=== PATIENT | female | born 1950 | race Caucasian/White ===

== ENCOUNTER → 2016-07-23 | Outpatient (CLI) | payer MEDICARE ==
--- NOTE | 2016-07-23 13:42 | CT ---
EXAMINATION TYPE: CT chest wo con DATE OF EXAM: 07/23/2016 1:08 PM COMPARISON: Prior chest CT 25 June 2015 HISTORY: Patient complains of eye drooping. Patient has history of sarcoidosis. Pancoast tumor, C 34 .1, ptosis, HO2.409 CT DLP: 145.8 mGycm Automated exposure control for dose reduction was used. Helical acquisition through the chest without contrast FINDINGS: Apical pleural thickening is again noted. There is no mediastinal, axillary, or hilar adenopathy. Jose Angel cification within retrocaval pretracheal nodes seen as on previous. Aorta shows normal caliber. Pneum atocele again noted in the left lower lobe at the level of the pleural surface. No pleural or pericar dial effusion. Heart size is normal. Upper abdomen shows stable appearance. Probable scarring along t he major fissure laterally, axial image 21, 22 is stable. IMPRESSION: FINDINGS COMPATIBLE WITH OLD GRANULOMATOUS DISEASE. NONCONTRAST EXAM. NO SIGNIFICANT INTERVAL CHANGE.
== END | disposition home or self-care (01) ==
LOC: RADCTMAIN 12:46
PROVIDERS: ATTEND Family Medicine
DX: D38.1 Neoplasm of uncertain behavior of trachea, bronchus and lung (principal); H02.409 Unspecified ptosis of unspecified eyelid
CPT/HCPCS: 71250

== ENCOUNTER → 2017-01-26 | Outpatient (CLI) | payer MEDICARE ==
[2017-01-26 14:10] LABS: Appearance,Urine Clear (Clear); Bilirubin,Urine Negative (Negative); Glucose,Urine (UA) Negative (Negative); Ketones,Urine Negative (Negative); Leukocyte Esterase,Urine Negative (Negative); Nitrite,Urine Negative (Negative); PH, Urine 6.5 (5.0-8.0); Protein,Urine Trace (Negative); Specific Gravity,Urine 1.011 (1.001-1.035); UA Billing (MACRO vs. MICRO) CHEM; Urobilinogen,Urine <2.0 mg/dL (<2.0)
[2017-01-26 14:12] LABS: Anisocytosis Slight; Basophils % (A) 1 %; CH 30.4; Eosinophils # (A) 0.1 k/uL (0-0.7); Eosinophils % (A) 1 %; HCT 43.1 % (34.0-46.0); HDW 2.65; HGB 13.8 gm/dL (11.4-16.0); Luc # (Auto) 0.07; Luc % (Auto) 1; Lymphocytes # (A) 0.5 k/uL (1.0-4.8); Lymphocytes % (A) 9 %; MCH 29.7 pg (25.0-35.0); MCV 92.9 fL (80.0-100.0); Mean Platelet Volume 8.4; Monocytes # (A) 0.3 k/uL (0-1.0); Monocytes % (A) 5 %; Neutrophils # (A) 4.7 k/uL (1.3-7.7); Neutrophils % (A) 83 %; RBC 4.64 m/uL (3.80-5.40); RDW 16.1 % (11.5-15.5); WBC 5.7 k/uL (3.8-10.6); WBC (Perox) 5.77
[2017-01-26 14:27] LABS: Calcium 9.8 mg/dL (8.4-10.2); Phosphorus 3.7 mg/dL (2.5-4.5); Potassium 4.2 mmol/L (3.5-5.1); Total Bilirubin 0.4 mg/dL (0.2-1.3); Total Protein 7.4 g/dL (6.3-8.2)
[2017-01-26 15:14] LABS: Erythrocyte Sedimentation Rate 8 mm/hr (0-20)
[2017-01-26 21:20] LABS: ANA w/Reflex to Titer POSITIVE (NEGATIVE); RNP AB Interpretation POSITIVE (NEGATIVE)
== END | disposition home or self-care (01) ==
LOC: LABWHC1 12:37
PROVIDERS: ATTEND Internal Medicine Critical Care Medicine
DX: D86.9 Sarcoidosis, unspecified (principal)
CPT/HCPCS: 36415; 80053; 81003; 82164; 82550; 83735; 84100; 85025; 85652; 86038; 86039; 86225; 86235; 86431

== ENCOUNTER → 2017-01-28 | Outpatient (CLI) | payer MEDICARE ==
--- NOTE | 2017-01-28 15:57 | US ---
EXAMINATION TYPE: US thyroid st tissue head/neck DATE OF EXAM: 01/28/2017 COMPARISON: CT January 15, 2017 CLINICAL HISTORY: E04.1 Thyroid nodule. Pt has been on synthroid for 10 years. Pt has loss her voice for 6 weeks, she was admitted and on an antibiotic, she has stage [address] was non contrast GLAND SIZE: Right Lobe: 2.3 x 0.6 x 0.5 cm Overall Parenchyma: homogenous Left Lobe: 3.0 x 0.5 x 0.8 cm Overall Parenchyma: heterogeneous Isthmus Thickness: 0.2 cm NODULES RIGHT: # of nodules measured on right: 0 LEFT: # of nodules measured on left: 1 1. 0.4 X 0.2 x 0.5 cm echogenic solid nodule at the mid pole with well-defined margins; with a soft tissue rim outside the calcification. This nodule is wider than tall and shows no intranodular vasc ularity. Prior size: no prior ISTHMUS: # of nodules measured in the isthmus: 0 Bilateral neck scanned, no evidence of lymphadenopathy. Thyroid gland is overall small in size with small calcified nodule left thyroid lobe. Findings correl ate with recent CT. IMPRESSION: Small size thyroid is confirmed. No suspicious nodules are evident.
== END | disposition home or self-care (01) ==
LOC: RADUSWWP 15:11
PROVIDERS: ATTEND Otolaryngology
DX: E04.1 Nontoxic single thyroid nodule (principal)
CPT/HCPCS: 76536

== ENCOUNTER 2017-03-12 11:02 | Day surgery (SDC) | payer MEDICARE ==
[2017-03-10 09:50] VITALS: BMI 25.7
[~2017-03-12 11:02] MED LIST: CLINDAMYCIN 900 MG in DEXTROSE 5% IN WATER 50 ML IVPB ONE; DEXAMETHASONE SOD PHOSPHATE 10 MG/ML 1 ML VIAL IV ONE; HYDROcodone/APAP 7.5-325MG 1 EACH TAB ONE; HYDROmorphone 0.5 MG/0.5 ML SYRINGE IVP PRN; HYDROmorphone 1 MG/ML 1 ML SYRINGE ONE; LIDOCAINE 1% 20 ML VIAL (10MG/ML) FOR IV START INTRADERMA PRN; MIDAZOLAM 2 MG/2 ML VIAL IV PRN; ONDANSETRON 4 MG/2 ML VIAL IVP ONE; PILOCARPINE 5 MG TAB ONE; SCOPOLAMINE 1.5MG/72HR PATCH TRANSDERM ONE
[2017-03-12] MEDS ORDERED: PROPOFOL 10 MG/ML 20 ML VIAL IV ONE (12:29)
[2017-03-12] MEDS ORDERED: CLINDAMYCIN 150 MG/ML 4 ML VIAL ONE (12:29)
[2017-03-12] MEDS ORDERED: fentaNYL (PF) 50 MCG/ML 2 ML AMP ONE (12:29)
[2017-03-12] MEDS ORDERED: ONDANSETRON 4 MG/2 ML VIAL ONE (12:29)
[2017-03-12] MEDS ORDERED: MIDAZOLAM 2 MG/2 ML VIAL ONE (12:29)
[2017-03-12] MEDS ORDERED: HYDROcodone/APAP 7.5-325MG 1 EACH TAB ONE (16:15)
[2017-03-12] MEDS ORDERED: HYDROmorphone 1 MG/ML 1 ML SYRINGE ONE ×3 (17:39→23:19)
[2017-03-13] MEDS ORDERED: HYDROcodone/APAP 5-325MG 1 EACH TAB PO PRN ×2 (00:12→00:13)
[2017-03-13] MEDS ORDERED: HYDROmorphone 0.5 MG/0.5 ML SYRINGE IVP PRN (00:17)
[2017-03-13] MEDS ORDERED: ONDANSETRON 4 MG TAB PO PRN (00:18)
[2017-03-13] MEDS ORDERED: HYDROcodone/APAP 7.5-325MG 1 EACH TAB ONE ×2 (01:08→07:06)
[2017-03-13] MEDS ORDERED: HYDROcodone/APAP 7.5-325MG 1 EACH TAB PO PRN (02:57)
--- NOTE | 2017-03-13 08:11 | OP ---
OPERATIVE REPORT DATE OF SURGERY: 03/12/2017 PREOPERATIVE DIAGNOSES: 1. Displaced left trimalleolar ankle fracture. 2. Sjogren's disease. 3. Sarcoidosis. 4. Chronic kidney disease. 5. Osteopenia. 6. History of taking prednisone and Plaquenil. POSTOPERATIVE DIAGNOSES: 1. Displaced left trimalleolar ankle fracture. 2. Sjogren's disease. 3. Sarcoidosis. 4. Chronic kidney disease. 5. Osteopenia. 6. History of taking prednisone and Plaquenil. PROCEDURE: 1. Open reduction, internal fixation of closed right trimalleolar ankle fracture (open reduction, internal fixation of medial and lateral malleolus, nonoperative management of posterior malleolus). 2. Manual application of joint stress by physician for radiography, right ankle. 3. Application of short-leg splint by physician. SURGEON: Dr. Brian Lea. MANAGER GENERAL: Gian HOUSTON (Gian Spencer PAC was required as a skilled payroll and benefits assistant for patient positioning, surgical exposure, reduction of fracture, placement of hardware, closure of wound and application of splint). ANESTHESIA: Spinal. FLUIDS: 1000 mL crystalloid. TOURNIQUET TIME: Tourniquet time 60 minutes. INDICATION: The patient is a very pleasant, previously healthy 67-year-old female with a medical history significant for stage 3 kidney disease, Sjogren syndrome and sarcoidosis, who is on chronic steroids and also takes Plaquenil. The patient sustained a fall resulting in a displaced trimalleolar fracture dislocation. She was initially seen by my partner, who then referred her to me. I met with the patient and her daughter to discuss treatment options. I recommended operative fixation. We discussed the potential risks and complications of surgery including, but not limited to risk of anesthesia, risk of superficial infection, risk of deep infection, risk of delayed wound healing, risk of superficial wound necrosis, risk of fracture, nonunion, risk of fracture, malunion, risk of damage to local blood vessels or nerves, risk of postoperative instability, risk of broken hardware, risk of posttraumatic arthritis, risk of need for further surgery, risk of chronic pain, risk of chronic swelling, risk of inability to regain pre-injury level of function, risk of DVT, risk of PE, risk of other medical complication and possible loss of life or limb. The patient, her daughter voiced understanding of all of these are the most common complications, other complications are possible. They also voiced their understanding that she has a much higher risk of having a complication due to her history of chronic steroid use. They provided verbal and written consent to go forward with surgery. DESCRIPTION OF PROCEDURE: The patient was identified in preoperative holding. The correct right leg was marked with my initials. The consent form was reviewed. The patient was then brought back to the operating room. She was positioned on the OR table and a spinal anesthetic was administered. The patient was then positioned on the OR table. All bony prominences were padded. The contralateral leg was secured to the table with foam and tape. A tourniquet was applied to the proximal aspect of the right thigh. A bone foam bump was placed under the right leg, elevating it to facilitate imaging. A bump was placed under the right buttock internally rotating the leg to neutral. The patient's right leg was then prepped and draped in the standard sterile fashion. Prior to starting surgery, time-out was performed identifying the correct patient, operative extremity, and procedure. The patient's leg was then elevated and exsanguinated with an Esmarch bandage and the tourniquet was inflated to 250 mmHg. I began by outlining a longitudinal incision over the distal fibula. Skin incision was made with a 15 blade scalpel. Dissection was carried down carefully through subcutaneous tissue with tenotomy scissors. The periosteum was incised longitudinally in line with the skin incision. The fracture was identified and debrided of consolidating hematoma and early callus. The fracture was pulled out to length and reduced with a [id number] reduction clamp. Clinically, the fracture fragments keyed in and appeared to be anatomically reduced. Fluoroscopy was used to verify reduction of the fibular fracture. The fibula appeared to be out to length and reduced. At this point, I placed a 2.7 mm lag screw across the fracture. A 2.7 mm drill bit was used to create a gliding hole on the anterior cortex of the proximal fragment and a 2.0 drill bit was used to create a threaded hole in the posterior cortex of the distal fragment. A fully threaded 2.7 mm screw was placed generate excellent compression across the fracture. At this point, a 12 hole 1/3 tubular plate was placed over the lateral aspect of the fibula as a neutralization type plate. A 12 hole plate was utilized due to the long extent of her fracture. A 3.5 mm screw was placed just proximal to the fracture, bringing the plate down to bone. I then placed a 2nd 3.5 mm screw in the most proximal hole of the plate, making sure it was centered on the fibula. I then placed a fully threaded 4.0 mm cancellous screws in the 2 distal holes of the plate into the distal fragment. I then proceeded to place an additional 2 3.5 mm screws proximal to the fracture. Fluoroscopy shots were then taken showing the fibula out to length and anatomically reduced. Attention was then turned to the medial malleolus. A longitudinal incision was made over the medial malleolus. Skin incision was made with a 15 blade scalpel. Dissection was carried down carefully through subcutaneous tissue with tenotomy scissors. The saphenous nerve and vein were retracted anteriorly. The fracture fragment was identified and booked open. The periosteum was raised both proximally and distal to the fracture to help facilitate reduction. Clot and early early callus were cleaned out from the fracture site. The joint was visualized and there were no loose bodies or osteochondral defects. A 2.0 mm drill bit was used to create a unicortical perforation just proximal to the fracture. A [id number] reduction clamp was then used to reduce the fragment. One bell was placed in this hole. The other bell was placed at the tip of the medial malleolus. The fracture appeared to be anatomically reduced clinically. Fluoroscopy was brought in to verify reduction of the medial malleolus fracture. Due to the small size of the fracture fragment, I elected to place 2.7 mm screws rather than the typical 3.5 mm construct. A 2.0 mm drill bit was used to create a tract for a fully-threaded 2 7 screws both anteriorly and posterior to the bell. A fully threaded 2.7 mm screws measuring 56 mm were then placed. The reduction clamp was removed and the fracture fragment held. At this point, final fluoroscopy shots were taken including a mortise view, which showed the fibula out to length. The medial clear space reduced and all hardware in appropriate position. Manual external rotation stress test was then performed showing no widening of the medial clear space or incisor. I interpreted this as a stable syndesmosis and deltoid ligament. A true talar dome overlap lateral was then taken. The hardware appeared to be in acceptable position. The talus was centered under the plafond with no evidence of posterior malleolar displacement or posterior subluxation of the talus. Both wounds were then copiously irrigated. The fascia over the fibula was closed with a running 0 Vicryl stitch. The deep subcu was reapproximated using 2-0 Vicryl. The skin was closed using 3-0 nylon horizontal mattress stitches. The deep subcu was closed medially with 2-0 Vicryl. The skin was closed with 3-0 nylon horizontal mattress stitches. The tourniquet was let down. Total tourniquet time of 60 minutes. I verified that all instrument, sponge and sharp counts were correct. A sterile dressing consisting of Betadine-soaked Adaptic, 4 x 4, and Webril was applied. The drapes were then taken down. A very well-padded bulky Rodas splint with the ankle in neutral was placed. The patient was then woken from her anesthetic, transferred from the OR table to a gurney and brought to PACU, having tolerated the procedure well. PLAN: The patient is going to be admitted overnight for pain control and medical management. She is to remain strictly nonweightbearing on her right ankle. She will follow up in the office in 2 weeks. She is to leave her splint on at all times and is to remain nonweightbearing. MMODL / IJN: [id number] /
[2017-03-13] MEDS ORDERED: HYDROcodone/APAP 10-325MG 1 EACH TAB PO PRN (08:24)
[2017-03-13] MEDS: HYDROmorphone 1 MG/ML 1 ML SYRINGE IVP PRN ×2 (08:28→13:05)
[2017-03-13] MEDS: LACTATED RINGERS 1,000 ML IV SCH ×4 (08:40→21:17)
[2017-03-13] MEDS: CLINDAMYCIN 300 MG in DEXTROSE 5% IN WATER 50 ML IVPB SCH ×6 (08:43→17:03)
[2017-03-13] MEDS: LEVOTHYROXINE 100 MCG TAB PO SCH (08:54)
[2017-03-13] MEDS: ENOXAPARIN 40 MG/0.4 ML SYRINGE SQ SCH (08:54)
[2017-03-13] MEDS: PILOCARPINE 5 MG TAB PO SCH ×2 (08:54→20:07)
[2017-03-13] MEDS: HYDROXYCHLOROQUINE SULFATE 200 MG TAB PO SCH (08:55)
[2017-03-13] MEDS: predniSONE 10 MG TAB PO SCH (08:55)
--- NOTE | 2017-03-13 09:14 | XR ---
Exam: X-ray right ankle 2 views HISTORY: Intraoperative images TECHNIQUE: 2 images were obtained of the right ankle during surgery. FINDINGS: Intraoperative images demonstrate fusion of the lateral aspect of the fibula with plate and multiple screws.
--- NOTE | 2017-03-13 09:15 | FL ---
Examination: Intraoperative fluoroscopy of the right ankle TECHNIQUE: Fluoroscopic assistance was provided in operating room for purposes of right ankle interve ntion. fluoroscopy time: 31 seconds 5 images were sent via paper to the radiologist. This demonstrates operative intervention in the late ral aspect of the fibula and at the medial malleolus. A plate and multiple screws placed. Please see the operative dictation for reference.
[2017-03-13 09:59] LABS: CH 31.2; CHCM 34.4; HCT 34.2 % (34.0-46.0); HDW 2.94; HGB 11.4 gm/dL (11.4-16.0); MCH 30.5 pg (25.0-35.0); MCHC 33.4 g/dL (31.0-37.0); MCV 91.4 fL (80.0-100.0); Mean Platelet Volume 7.4; RBC 3.75 m/uL (3.80-5.40); RDW 13.8 % (11.5-15.5); WBC 5.6 k/uL (3.8-10.6)
[2017-03-13 10:07] VITALS: RESP 16
[2017-03-13 10:13] LABS: Calcium 8.9 mg/dL (8.4-10.2); Potassium 3.2 mmol/L (3.5-5.1)
[2017-03-13] MEDS: ESTROPIPATE 0.75 MG TAB PO SCH (10:22)
--- NOTE | 2017-03-13 10:54 | P.PN ---
Subjective The patient is doing well this morning and is only complaining of ankle pain. She denies chest pain or shortness of breath. Objective - Vital Signs Vital signs: Vital Signs Temp 97.8 F 03/13/17 10:04 Pulse 80 03/13/17 10:04 Resp 16 03/13/17 10:04 BP 168/78 03/13/17 10:04 Pulse Ox 99 03/13/17 10:04 Intake & Output 03/12/17 03/13/17 03/13/17 18:59 06:59 18:59 Output Total 1500 Balance -1500 Weight 65.771 kg Output: Urine 1500 Uretheral (Matute) 1500 Other: Voiding Method Indwelling Catheter - Exam A focused examination of the operative extremity was conducted. On inspection there is a clean-appearing bulky Rodas splint with no drainage. The tips of the toes are warm and well perfused with brisk capillary refill. Sensation is intact to light touch at the tip of the toes. There is no pain with passive range of motion of the toes. - Labs CBC & Chem 7: 03/13/17 09:45 03/13/17 09:45 Labs: Abnormal Lab Results - Last 24 Hours (Table) 03/13/17 03/13/17 Range/Units 09:45 09:45 RBC 3.75 L (3.80-5.40) m/uL Plt Count 148 L (150-450) k/uL Potassium 3.2 L (3.5-5.1) mmol/L Chloride 111 H (98-107) mmol/L BUN 19 H (7-17) mg/dL Creatinine 1.55 H (0.52-1.04) mg/dL Assessment and Plan Plan: The patient is a 67-year-old female who is postoperative day #1 status post open reduction and internal fixation of trimalleolar ankle fracture. 1. Check nonweightbearing operative extremity, ice and elevation. 2. 2 doses postoperative antibiotics 3. DVT prophylaxis with Lovenox while in-house, home on aspirin 325 mg twice a day 4. Internal medicine for perioperative medical management 5. Bone health with calcium, vitamin D, and awaiting 25-hydroxy vitamin D level 6. Anticipate discharge home tomorrow when the patient passes physical therapy and her pain is adequately controlled
--- NOTE | 2017-03-13 12:32 | CONS ---
CONSULTATION DATE OF CONSULTATION: 03/12/17 This is a 66-year-old white female that was admitted after having sustained a fracture of her right face, right ankle on March 03 and ended up being a trimalleolar fracture. Initially seen by Dr. Kwasi Jaime. He placed her in a cast for mobility and the patient was seen by Dr. Lea, who then brought her to surgery and did surgical open reduction, internal fixation on March 12, 2017. I did see her yesterday unfortunately computers were down and now I am dictating her note for this. PAST MEDICAL HISTORY: Sjogren's disease, sarcoidosis. She has some chronic renal failure. Osteopenia. She has a longstanding history of being in menopause. Her Sjogren's disease. Sarcoidosis. Has her also on Plaquenil. She has been euthyroid, longstanding osteoarthritis. ALLERGIES: TO CEPHALEXIN, ERYTHROMYCIN BASE, PENICILLIN, AND MESOTRIPTAN. MEDICATIONS: Include that of takin. 50 Benadryl at bedtime to sleep. 2. She is also on 0.625 daily. 3. She is taking Levothroid 0.1 mg daily. 4. Pilocarpine 5 mg b.i.d. 5. Prednisone 10 mg a day. 6. Plaquenil 200 mg in the morning. LABORATORY DATA: Upon admission showed WBC of 5.6, hemoglobin of 11.4 and a creatinine of 1.5 and a BUN of 19. REVIEW OF SYSTEMS: At this time. HEENT was negative. Her eyesight is fine. Respiratory: She has had no shortness of breath. At this point, without chest pain. No cough, orthopnea or paroxysmal nocturnal dyspnea. GI: She has had a little bit of nausea. Other than that, no hematochezia, no melena, any type of chantell blood. No constipation. : She has had normal urination. Has had urinary tract infections in the past. Neuromuscularly , she has had good strength in her legs except for this fracture of this ankle, which has been very painful. Skin has been normal. LABS: At this point, the only thing I have is a 11.4 hemoglobin and a 5 WBC, creatinine that stayed 1.5 with a 16, so we have a 33 GFR, which is normal for her. Calcium levels good at 8.9. PHYSICAL EXAMINATION: Vital signs: Blood pressure at this time is 160/70, pulse rate is 80, respiratory 16, temperature is 98.7. The patient is alert, well orientated to person, place, and thing with moderate amount of pain. She says she is urinating fine. EYES: Pupils are equal, round, reactive to accommodation. ENT showed tympanic membranes and pharynx to be negative. NECK: Supple with a midline trachea. Chest essentially clear to auscultation. Heart is sinus rhythm. No murmur. ABDOMEN: Soft, nontender with no organomegaly. Good bowel sounds. Negative to palpation. She has good range of motion in her left leg with no evidence of DVT. The right leg is in a cast postoperatively to the knee. ASSESSMENT: 1. Trimalleolar fracture taken care by Dr. Hazel. 2. History of renal failure, chronic in nature secondary from her sarcoidosis. She also has Sjogren's syndrome, which is euthyroid. We will continue with good hydration today. PLAN: Will continue with DVT prophylaxis, obviously GI prophylaxis is a strong consideration. The patient may go home tomorrow if she is stable. Dr. Lea thank you for the consultation. MMODL / IJN: [id number] /
[2017-03-13] MEDS: HYDROcodone/APAP 10-325MG 1 EACH TAB PO PRN ×3 (12:54→23:36)
[2017-03-13] MEDS ORDERED: HYDROmorphone 1 MG/ML 1 ML SYRINGE IVP PRN (16:55)
[2017-03-13] MEDS ORDERED: diphenhydrAMINE 50 MG CAP PO PRN (21:00)
[2017-03-14] MEDS: HYDROcodone/APAP 10-325MG 1 EACH TAB PO PRN ×2 (05:26→12:02)
[2017-03-14] MEDS: LACTATED RINGERS 1,000 ML IV SCH ×2 (06:04→06:05)
[2017-03-14 07:16] LABS: Basophils % (A) 1 %; CH 31.2; CHCM 34.2; Eosinophils # (A) 0.1 k/uL (0-0.7); Eosinophils % (A) 2 %; HDW 2.88; HGB 10.5 gm/dL (11.4-16.0); Luc # (Auto) 0.09; Luc % (Auto) 2; Lymphocytes # (A) 0.8 k/uL (1.0-4.8); Lymphocytes % (A) 19 %; MCH 30.1 pg (25.0-35.0); MCHC 32.7 g/dL (31.0-37.0); Mean Platelet Volume 7.6; Monocytes # (A) 0.3 k/uL (0-1.0); Monocytes % (A) 6 %; Neutrophils # (A) 3.1 k/uL (1.3-7.7); Neutrophils % (A) 70 %; RBC 3.48 m/uL (3.80-5.40); RDW 13.6 % (11.5-15.5); WBC 4.4 k/uL (3.8-10.6); WBC (Perox) 4.18
--- NOTE | 2017-03-14 07:59 | P.DS ---
Providers Expected date of discharge: 03/14/17 Attending physician: Brian Lea Consults: 03/13/17 18:24 Consult Physician Routine Consulting Provider: Murali Keller Consult Reason/Comments: medical management/post op Do you want consulting provider notified?: Already Contacted Primary care physician: Murali Keller - Discharge Diagnosis(es) (1) Closed right ankle fracture Current Visit: Yes Status: Acute (2) Trimalleolar fracture of right ankle Current Visit: Yes Status: Acute (3) Status post ORIF of fracture of ankle Current Visit: Yes Status: Acute Hospital Course: This is a 67 -year-old female who sustained a displaced trimalleolar fracture dislocation of the right ankle after a fall. The patient presents for evaluation. After discussion and consideration patient elects to proceed with open reduction and internal fixation of trimalleolar ankle fracture. The patient is seen preoperatively by Dr. Lea and cleared for surgery. Patient is admitted to [facility] on 03/12/2017 for open reduction and internal fixation of trimalleolar ankle fracture. The procedures performed without complication or sequelae. The patient is doing well postoperatively. Labs and vital signs are stable on day of discharge. On day of discharge patient's splint is intact. Patient is able to wiggle the toes. Sensation intact. Capillary refill is normal at less than 2 seconds. Neurovascular status to the right lower extremity is intact. Patient is discharged home in good condition. Please see med rec for accurate list of home medications. Plan - Discharge Summary New Discharge Prescriptions: New HYDROcodone/APAP 10-325MG [[place] 10-325] 1 - 2 tab PO Q4-6H PRN #90 tab PRN Reason: Pain Sennosides [Senokot] 2 tab PO DAILY #60 tablet Aspirin 325 mg PO BID #60 tab No Action Levothyroxine Sodium [Synthroid] 100 mcg PO QAM Estropipate [Ogen 0.625] 0.75 mg PO QAM traMADol HCL [Ultram] 50 mg PO Q6HR PRN PRN Reason: Pain predniSONE 10 mg PO DAILY HYDROcodone/APAP 7.5-325MG [[place] 7.5-325] 1 tab PO Q6HR PRN PRN Reason: Pain Pilocarpine [Salagen] 5 mg PO QAM Hydroxychloroquine Sulfate [Plaquenil] 200 mg PO QAM Discharge Medication List Estropipate [Ogen 0.625] 0.75 mg PO QAM 01/24/15 [History] Levothyroxine Sodium [Synthroid] 100 mcg PO QAM 01/24/15 [History] HYDROcodone/APAP 7.5-325MG [[place] 7.5-325] 1 tab PO Q6HR PRN 03/10/17 [History] Hydroxychloroquine Sulfate [Plaquenil] 200 mg PO QAM 03/10/17 [History] Pilocarpine [Salagen] 5 mg PO QAM 03/10/17 [History] predniSONE 10 mg PO DAILY 03/10/17 [History] traMADol HCL [Ultram] 50 mg PO Q6HR PRN 03/10/17 [History] Aspirin 325 mg PO BID #60 tab 03/14/17 [Rx] HYDROcodone/APAP 10-325MG [[place] 10-325] 1 - 2 tab PO Q4-6H PRN #90 tab [Rx] Sennosides [Senokot] 2 tab PO DAILY #60 tablet 03/14/17 [Rx] Follow up Appointment(s)/Referral(s): Brian Lea MD [Medical Doctor] - 2 Weeks Activity/Diet/Wound Care/Special Instructions: Patient is to remain strictly nonweightbearing Please take medications as prescribed. Please keep splint clean, dry and intact The questions call [facility] at [phone]
[2017-03-14 08:17] VITALS: TEMP 97.9
[2017-03-14 09:41] VITALS: BP 110/66; PULSE 67
[2017-03-14] MEDS: LEVOTHYROXINE 100 MCG TAB PO SCH (09:55)
[2017-03-14] MEDS: predniSONE 10 MG TAB PO SCH (09:55)
[2017-03-14] MEDS: PILOCARPINE 5 MG TAB PO SCH (09:55)
[2017-03-14] MEDS: HYDROXYCHLOROQUINE SULFATE 200 MG TAB PO SCH (09:55)
[2017-03-14] MEDS: ENOXAPARIN 40 MG/0.4 ML SYRINGE SQ SCH (09:55)
[2017-03-14] MEDS: ESTROPIPATE 0.75 MG TAB PO SCH (10:21)
--- NOTE | 2017-03-14 10:39 | PN ---
PROGRESS NOTE Jane Weems is a 67-year-old white female who was admitted 2 and half weeks post trimalleolar fracture on the right and had the surgical procedure, had a surgical open reduction, internal fixation involving screws. States she has been doing well since surgery and she was doing well pre to it. She has a long-standing medical past history of sarcoidosis, , and she has had some chronic renal failure secondary from her sarcoidosis. Has a history of osteopenia and she has been menopausal. She has a history of euthyroid and some generalized osteoarthritis. ALLERGIES: ARE TO CEPHALEXIN, ERYTHROMYCIN BASED MEDICATIONS, PENICILLIN, AND MESOTREPTAN. MEDICATIONS: Include 50 of Benadryl at bedtime, aspirin 325 mg daily, Levaquin, Plaquenil 200 mg daily, prednisone 10, Pilocarpine 5 twice a day and in Levothroid 0.1 mg daily. Also taking the Premarin 0.0625. LABORATORY DATA: Followup lab showed no changes and stable. REVIEW OF SYSTEMS: Eyes: She has no problem with blurriness. ENT is negative. Respiratory: She has had no shortness of breath. No cough. Cardiopulmonary: No orthopnea or proximal nocturnal dyspnea. No palpitations. No chest pain. GI: No nausea, vomiting, hematochezia, melena. No constipation. no problem with urination postoperatively. Neuromuscular just the pain is especially in the area of the fracture. Negative swelling in the other leg and no skin changes. Allergy: She has had a history of stuffy nose and just basic outside allergies. No specific asthma. Skin has also been no new rashes. PHYSICAL EXAMINATION: Blood pressure is 110/67, heart rate is in the 60s. Respiratory rate is 16, and temperature is 97.9. Physical examination: The patient is alert, well orientated to person, place, and thing. Her pain is well controlled with the [place]. EYES: Pupils are equal, round, react to light and accommodation. ENT showed tympanic membranes and pharynx to be negative. NECK: Supple. Midline trachea. Chest essentially clear to auscultation. Heart is sinus rhythm with no murmur. ABDOMEN: Soft, nontender with no organomegaly. No palpable masses. Lower extremity negative Stacey on the left. The right leg is in entire cast up to the knee post trimalleolar fracture. SKIN: No rashes that were seen. Good skin turgor. Vascular good circulation in the left lower leg. Cervical spine is good range of motion. ASSESSMENT: 1. Trimalleolar fracture with fixation per Dr. Lea. 2. History of renal failure, chronic in nature from sarcoidosis. 3. Sjogren's syndrome. 4. Osteopenia. 5. Euthyroid. 6. Hydration that is well. PLAN: The patient is being discharged on same medication. Please refer to the list provided by Ortho. She will follow up with me in 3 weeks. MMODL / IJN: [id number] /
--- NOTE | 2017-03-24 15:48 | P.OP ---
Date of Procedure: 03/12/17 Preoperative Diagnosis: Same as previously dictated operative note, but the ankle fracture was the RIGHT ankle and not the left. The prior note documenting the left ankle was made as a mistake, the correct ankle was the RIGHT ankle. Procedure(s) Performed: The prior operative note documented ORIF of a left ankle, the procedure was performed on a RIGHT ankle and the prior operative note documenting the left ankle was a mistake. The RIGHT ankle was the ankle that was operated on.
== END 2017-03-14 13:50 | disposition home health service (06) ==
LOC: OR 11:02 → 3SUR 14:26 → OR 03-14 13:50
PROVIDERS: ATTEND Orthopaedic Surgery
DX: S82.852A Displaced trimalleolar fracture of left lower leg, initial encounter for closed fracture (principal); W18.09XA Striking against other object with subsequent fall, initial encounter; Y93.9 Activity, unspecified; Y92.007 Garden or yard of unspecified non-institutional (private) residence as the place of occurrence of the external cause; M85.80 Other specified disorders of bone density and structure, unspecified site; M35.00 Sjogren syndrome, unspecified; D86.9 Sarcoidosis, unspecified; N18.3 Chronic kidney disease, stage 3 (moderate); E07.9 Disorder of thyroid, unspecified; Z79.891 Long term (current) use of opiate analgesic; Z79.899 Other long term (current) drug therapy; Z79.82 Long term (current) use of aspirin; Z79.52 Long term (current) use of systemic steroids; Z88.1 Allergy status to other antibiotic agents; Z88.0 Allergy status to penicillin; Z88.8 Allergy status to other drugs, medicaments and biological substances
CPT/HCPCS: 97116; 97161; 80048; 84132; 85025; 85027; 82306; 76000; 73600; 27822; C1713; J2250; J2405; J1650 ×2; J3010; J1170; J2704; J7512 ×2

== ENCOUNTER 2018-02-21 08:53 | Day surgery (SDC) | payer MEDICARE ==
[2018-02-17 11:26] VITALS: BMI 26.5
[~2018-02-21 08:53] MED LIST changes: -CLINDAMYCIN 900 MG in DEXTROSE 5% IN WATER 50 ML IVPB ONE; -DEXAMETHASONE SOD PHOSPHATE 10 MG/ML 1 ML VIAL IV ONE; -HYDROcodone/APAP 7.5-325MG 1 EACH TAB ONE; -HYDROmorphone 0.5 MG/0.5 ML SYRINGE IVP PRN; -HYDROmorphone 1 MG/ML 1 ML SYRINGE ONE; +LACTATED RINGERS 1,000 ML IV SCH; -MIDAZOLAM 2 MG/2 ML VIAL IV PRN; -ONDANSETRON 4 MG/2 ML VIAL IVP ONE; -PILOCARPINE 5 MG TAB ONE; -SCOPOLAMINE 1.5MG/72HR PATCH TRANSDERM ONE
[2018-02-21 09:42] VITALS: TEMP 97
[2018-02-21] MEDS ORDERED: LIDOCAINE 1% INJ 10MG/ML (20 ML MDV) ONE (10:10)
[2018-02-21] MEDS ORDERED: PROPOFOL 10 MG/ML 20 ML VIAL IV ONE (10:10)
--- NOTE | 2018-02-21 10:21 | P.GSHP ---
History of Present Illness H&P Date: 02/21/18 Chief Complaint: Screening colonoscopy This is a 68-year-old female who presents today for screening colonoscopy. Patient denies any significant GI complaints. Past Medical History Past Medical History: Renal Disease, Thyroid Disorder Additional Past Medical History / Comment(s): SaRcodosis - 2013, sjogren's, hx of migraines History of Any Multi-Drug Resistant Organisms: None Reported Past Surgical History: Appendectomy, Hysterectomy, Orthopedic Surgery, Tonsillectomy Additional Past Surgical History / Comment(s): COLONOSCOPY. ORIF RT ANKLE W/ PLATE AND 9 SCREWS Past Anesthesia/Blood Transfusion Reactions: No Reported Reaction Smoking Status: Never smoker - Past Family History Father History Unknown: Yes Family Medical History: Cancer, Coronary Artery Disease (CAD), Myocardial Infarction ([place]) Additional Family Medical History / Comment(s): colon ca Mother History Unknown: Yes Family Medical History: No Reported History, Coronary Artery Disease (CAD), Myocardial Infarction ([place]) Additional Family Medical History / Comment(s): at 87 Medications and Allergies Home Medications Medication Instructions Recorded Confirmed Type Estropipate [Ogen 0.625] 0.75 mg PO QAM 01/24/15 02/17/18 History Levothyroxine Sodium [Synthroid] 100 mcg PO QAM 01/24/15 02/17/18 History Hydroxychloroquine Sulfate 200 mg PO QAM 03/10/17 02/17/18 History [Plaquenil] Pilocarpine [Salagen] 5 mg PO QAM 03/10/17 02/17/18 History traMADol HCL [Ultram] 50 mg PO Q6HR PRN 03/10/17 02/17/18 History Allergies Allergy/AdvReac Type Severity Reaction Status Date / Time cefazolin Allergy Rash/Hives Verified 02/17/18 11:21 erythromycin base Allergy Rash/Hives Verified 02/17/18 11:21 Penicillins Allergy Rash/Hives Verified 02/17/18 11:21 rizatriptan Allergy Chest Pain Verified 02/17/18 11:21 sulfamethoxazole Allergy Rash/Hives Verified 02/17/18 11:21 [From Bactrim] trimethoprim [From Bactrim] Allergy Rash/Hives Verified 02/17/18 11:21 Surgical - Exam Vital Signs Temp Pulse Resp BP Pulse Ox 97.0 F L 70 16 154/68 99 02/21/18 09:40 02/21/18 09:40 02/21/18 09:40 02/21/18 09:40 02/21/18 09:40 - General well developed, no distress - Eyes PERRL - ENT normal pinna - Neck no masses - Respiratory normal expansion - Cardiovascular Rhythm: regular - Abdomen Abdomen: soft, non tender Assessment and Plan Assessment: We'll perform screening colonoscopy.
--- NOTE | 2018-02-21 10:31 | P.OP ---
Date of Procedure: 02/21/18 Preoperative Diagnosis: Screening colonoscopy Postoperative Diagnosis: . Severe Diverticulosis of sigmoid colon Procedure(s) Performed: Colonoscopy Anesthesia: MAC Surgeon: Mark Murillo Pathology: none sent Condition: stable Disposition: PACU Description of Procedure: The patient's placed on the endoscopy table in the lateral position. She received IV sedation. Digital rectal exam was performed which revealed no abnormalities. The flexible colonoscope was then placed patient anus and passed throughout the colon. There was extensive diverticular changes in the sigmoid and left colon. The scope passed in the transverse colon. Scope was withdrawn there is extensive diverticular changes of the descending and sigmoid colon. Scope was then brought through the rectum and this appeared normal. Scope was withdrawn for patient. Patient was scheduled for a barium enema.
[2018-02-21 11:04] VITALS: BP 133/78; PULSE 74; RESP 18
--- NOTE | 2018-02-21 12:04 | XR ---
EXAMINATION TYPE: XR KUB DATE OF EXAM: 02/21/2018 11:18 AM CLINICAL HISTORY: Incomplete colonoscopy TECHNIQUE: Single supine KUB image of the abdomen is obtained. COMPARISON: None. FINDINGS: Scattered gas is seen in nondilated small bowel loops. Gas and fecal material is seen in no ndilated colon. Evaluation for pneumoperitoneum is limited on the supine view. No gross evidence of p neumoperitoneum is seen. The lung bases are clear and the osseous structures are intact. IMPRESSION: Gaseous distention without dilation of the colon from the recent colonoscopy. Nonobstruct constantino bowel gas pattern.
== END 2018-02-21 11:43 | disposition home or self-care (01) ==
LOC: ORWHC2ENDO 08:53
PROVIDERS: ATTEND Surgery
DX: Z12.11 Encounter for screening for malignant neoplasm of colon (principal); K57.30 Diverticulosis of large intestine without perforation or abscess without bleeding; E07.9 Disorder of thyroid, unspecified; D86.9 Sarcoidosis, unspecified; M35.00 Sjogren syndrome, unspecified; G43.909 Migraine, unspecified, not intractable, without status migrainosus; F39 Unspecified mood [affective] disorder; Z79.890 Hormone replacement therapy; Z79.899 Other long term (current) drug therapy; Z88.1 Allergy status to other antibiotic agents; Z88.0 Allergy status to penicillin; Z88.2 Allergy status to sulfonamides
CPT/HCPCS: 74018; J2001; J2704; G0121; 45378

== ENCOUNTER → 2018-02-22 | Outpatient (CLI) | payer MEDICARE ==
--- NOTE | 2018-02-22 12:15 | FL ---
EXAMINATION TYPE: FL barium enema w air contrast DATE OF EXAM: 02/22/2018 COMPARISON: NONE HISTORY: Incomplete colonoscopy/diverticulitis TECHNIQUE: Barium and air were instilled into the colon from the rectum to the cecum. FINDINGS: Examination was discontinued secondary to a vasovagal reaction by the patient and inability to complete examination. IMPRESSION: Discontinued barium enema secondary to vasovagal reaction.
== END ==
LOC: RADFLMAIN 07:35
PROVIDERS: ATTEND Surgery
DX: Z53.9 Procedure and treatment not carried out, unspecified reason (principal)
CPT/HCPCS: 74280

== ENCOUNTER → 2020-08-07 | Outpatient (CLI) | payer MEDICARE ==
--- NOTE | 2020-08-08 08:32 | US ---
EXAMINATION TYPE: US thyroid st tissue head/neck DATE OF EXAM: 08/07/2020 COMPARISON: 01/28/2017 CLINICAL HISTORY: E03.9 hypothyroidism. GLAND SIZE: Right Lobe: 2.5 x 0.8 x 1.1 cm Overall Parenchyma: Heterogeneous small thyroid parenchyma Left Lobe: 2.5 x 0.5 x 0.7 cm Overall Parenchyma: heterogeneous, small thyroid parenchyma Isthmus Thickness: 0.1 cm NODULES RIGHT: # of nodules measured on right: 0 LEFT: # of nodules measured on left: 1 1. 0.5 X 0.2 x 0.2 cm, mid, solid or almost completely solid, hyperechoic nodule, which is wider th an tall, with ill-defined margins, with echogenic foci. Prior size: 0.4 x 0.2 x 0.5 cm Bilateral neck scanned, no evidence of lymphadenopathy. IMPRESSION: Hyperechoic nodule with course calcifications within the left lobe of the thyroid gland measuring up to 5 mm. This is stable in size. Continued sonographic follow-up is recommended. The overall thyroid parenchyma is heterogeneous and small. 2017 ACR TI-RADS LEVEL: 4 *Highest TI-RADS level nodule reported
== END | disposition home or self-care (01) ==
LOC: RADUSWWP 15:28
PROVIDERS: ATTEND Family Medicine
DX: E03.9 Hypothyroidism, unspecified (principal); E04.1 Nontoxic single thyroid nodule
CPT/HCPCS: 76536

== ENCOUNTER → 2021-08-22 | Day surgery (SDC) | payer MEDICARE ==
[2021-08-22 10:22] VITALS: RESP 16
[2021-08-22 11:45] VITALS: BP 150/73; PULSE 65; TEMP 98.2
--- NOTE | 2021-08-27 13:31 | MM ---
Risk Values: Yodit 5 year model risk: 1.4%. NCI Lifetime model risk: 4.0%. Prior Study Comparison: 01/10/2009 Bilateral Screening Mammogram, [facility]. 11/15/2012 Bilateral Screening Mammogram, [facility]. 11/22/2012 Left Diagnostic Mammogram, [facility]. Pathology Description: Location: posterior. Marker Left Behind. Approach: Lateral to Medial Needle Type: Eviva Cores: 7 Skin Nicks: 1 Gauge: 9 The procedure of stereotactic guided core biopsy was explained to the patient. Benefits, alternatives, and risks were discussed. An informed consent was then obtained. Timeout was performed. The shortness pathway for biopsy was chosen. Shortness pathway was inferior approach. Radiology provided targeting and performed the procedure. The skin was cleansed in the standard manner. Skin and deeper breast tissue was anesthetized with 1% lidocaine. Additional lidocaine with epinephrine was utilized during the exam. 7 core samples were obtained. A clip was placed. Good hemostasis was obtained with direct pressure. Specimen: No specimen imaging was obtained of the mass. Postprocedure mammogram: Surgical clip is in the expected region of the density identified on prebiopsy mammogram. Impression: 1. Successful stereotactic core biopsy right breast. Pathology Results: Result: Malignant, Invasive ductal carcinoma. 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 See Surgical Pathology Cancer Case Summary and Comment. Overall Assessment: Malignant Management: Surgical Consultation of the right breast. Electronically signed and approved by: Jose Shahid D.O. Radiologis
== END ==
LOC: RADMAMWWP 09:54
PROVIDERS: ATTEND Surgery
DX: D05.11 Intraductal carcinoma in situ of right breast (principal)
CPT/HCPCS: 19081; 88305; 88342; 88341; A4648; J2001